=== PATIENT | female | born 1970 | race Caucasian/White ===

== ENCOUNTER 2025-04-25 10:53 | Outpatient (OUT) | payer OTHER, SELFPAY ==
--- NOTE | 2025-04-25 11:02 | MM_ITS ---
Patient Name: NITIN JIMENEZ MR#: [id number] : 1970 Exam Date: 04/25/2025 Ordering Doctor: DR KAMI LEONE M.D. RADIOLOGY REPORT PROCEDURE: MM TOMOSYNTHESIS SCREENING BI COMPARISON: MG MAMM SCREEN 3D [place] CAD, 01/10/2021. INDICATIONS: Screening Calculator Name NCI Breast Cancer Risk Assessment Tool 5 Year Breast Cancer Risk 1.60% Lifetime Breast Cancer Risk 11.20% Personal Breast Cancer No Personal Ovarian Cancer No Treatments None Family Cancers Grandmother-maternal with breast cancer at age 62; Father with renal cancer at age 62. LOCATION: [facility] BREAST COMPOSITION: The breasts are extremely dense, which lowers the sensitivity of mammography. FINDINGS: RIGHT BREAST: No significant suspicious finding. LEFT BREAST: No significant suspicious finding. DIAGNOSTIC CATEGORY 1--NEGATIVE. RECOMMENDATIONS: ROUTINE MAMMOGRAM AND CLINICAL EVALUATION IN 12 MONTHS. PLEASE NOTE: A NORMAL MAMMOGRAM DOES NOT EXCLUDE THE POSSIBILITY OF BREAST CANCER. A CLINICALLY SUSPICIOUS PALPABLE LUMP SHOULD BE BIOPSIED. Dictated by: Ramírez Corona DO on 04/25/2025 at 15:30 Approved by: Ramírez Corona DO on 04/25/2025 at 15:34
== END 2025-04-25 10:54 | disposition home or self-care (01) ==
LOC: MAMMO 10:58
PROVIDERS: PCP Family Medicine; Visit Provider Family Medicine
DX: Z12.31 Encounter for screening mammogram for malignant neoplasm of breast (principal); Z80.3 Family history of malignant neoplasm of breast; Z80.51 Family history of malignant neoplasm of kidney
CPT/HCPCS: 77063; 77067